=== PATIENT | male | born 1975 | race Two or more races ===

== ENCOUNTER 2019-07-18 01:26 | Emergency (ER) | payer OTHER ==
[~2019-07-18] VITALS: Ht 180.3 cm; Wt 95.3 kg
[2019-07-18] MEDS ORDERED: KETO10TA2 PO (04:51)
== END 2019-07-18 05:02 ==
LOC: ER 01:26
DX: M25.462 Effusion, left knee (principal); S80.01XS Contusion of right knee, sequela; V29.88XS Motorcycle rider (driver) (passenger) injured in other specified transport accidents, sequela

== ENCOUNTER 2020-01-21 10:56 | Emergency (ER) | payer OTHER ==
[~2020-01-21] VITALS: Ht 177.8 cm; Wt 99.8 kg
[~2020-01-21 10:56] MED LIST: KETO10TA2 PO
[2020-01-21] MEDS ORDERED: VISTARIL25 MG PO (13:30)
== END 2020-01-21 13:38 | disposition home or self-care (01) ==
LOC: ER 10:56
DX: R00.2 Palpitations (principal); F41.8 Other specified anxiety disorders; Z03.818 Encounter for observation for suspected exposure to other biological agents ruled out